=== PATIENT | male | born 1950 | race Two or more races ===

== ENCOUNTER 2023-12-07 19:26 | Inpatient (IN) | payer OTHER ==
[~2023-12-07] VITALS: Ht 182.9 cm; Wt 86.2 kg
[2023-12-07] MEDS ORDERED: EDARBYCLOR 40-1 EACH (20:07)
[2023-12-07] MEDS ORDERED: VICTOZA 2-0.6 MG/0.1 (20:08)
[2023-12-07] MEDS ORDERED: SYNTHROID175 MCG (20:08)
[2023-12-07] MEDS ORDERED: TOUJEO MAX300 UNIT/1 (20:08)
[2023-12-07] MEDS ORDERED: ADCIRCA20 MG (20:08)
[2023-12-07] MEDS ORDERED: MONTELUKAST SODI4 M1 (20:09)
[2023-12-07] MEDS ORDERED: BREO ELLIPTA I1 EACH (20:09)
[2023-12-07] MEDS ORDERED: AMLODIPINE-OLM1 EAC2 (20:09)
[2023-12-07] MEDS ORDERED: CRESTOR5 MG (20:09)
[2023-12-07 21:17] LABS: HEMATOCRIT 41.8 % (39.0-48.0); HEMOGLOBIN 14.4 g/dL (13-16.00); MEAN CELL VOLUME 86.3 fL (80.0-100.00); MEAN CORPUSCULAR HEMOGLOBIN 29.7 pg (27.00-32.0); MEAN CORPUSCULAR HGB CONC 34.4 g/dl (32.0-36.0); PLATELET COUNT 142 K/uL (150-450); RED BLOOD COUNT 4.84 M/uL (4.00-6.00); RED CELL DISTRIBUTION WIDTH 14.3 % (11.5-14.5)
[2023-12-07 21:32] LABS: CALCIUM 8.1 mg/dL (8.5-10.1); CREATININE SERUM 2.52 mg/dL (0.70-1.30); GFR 25.28; POTASSIUM 3.19 mEq/L (3.5-5.1)
[2023-12-07 21:51] LABS: URINE APPEARANCE Cloudy; URINE BILIRRUBIN Small (NEGATIVE); URINE BLOOD Negative; URINE COLOR Dark Yellow; URINE LEUKOCYTE Small; URINE NITRATE Negative
[2023-12-07 21:54] LABS: URINE BACTERIA 171.3 uL (0.0-1933); URINE EPITHELIAL CELLS 61.2 uL (0.0-38.8); URINE RBC 12.7 uL (0.0-20.8); URINE WBC 31.5 uL (0.0-23.2)
[2023-12-07 22:12] LABS: URINE GLUCOSE 100 MG/DL (NEGATIVE); URINE PROTEIN 300 (NEGATIVE)
[2023-12-07 22:13] LABS: URINE CRYSTALS FEW /HPF
[2023-12-08 09:59] LABS: HEMATOCRIT 39.9 % (39.0-48.0); HEMOGLOBIN 13.6 g/dL (13-16.00); MEAN CELL VOLUME 85.8 fL (80.0-100.00); MEAN CORPUSCULAR HEMOGLOBIN 29.3 pg (27.00-32.0); MEAN CORPUSCULAR HGB CONC 34.1 g/dl (32.0-36.0); RED BLOOD COUNT 4.65 M/uL (4.00-6.00); RED CELL DISTRIBUTION WIDTH 14.3 % (11.5-14.5)
[2023-12-08 10:02] LABS: PLATELET COUNT 100 K/uL (150-450)
[2023-12-08 10:06] LABS: ERYTHROCYTE SEDIMENTATION RATE 20 mm/hr
[2023-12-08 10:40] LABS: TSH 0.506 uIU/mL (0.358-3.74)
[2023-12-08 10:56] LABS: ALBUMIN 2.8 gm/dL (3.4-5.0); BILIRUBIN TOTAL 1.89 mg/dL (0.3-1.2); CALCIUM 7.4 mg/dL (8.5-10.1); CHOL HDL RATIO 3.1 (0-5.0); CREATININE SERUM 1.99 mg/dL (0.70-1.30); GFR 33.2; MAGNESIUM 1.7 mg/dL (1.8-2.4); PHOSPHOROUS 3.3 mg/dL (2.5-4.9); TOTAL PROTEIN 5.8 gm/dL (6.4-8.2)
[2023-12-08 11:06] LABS: C-REACTIVE PROTEIN 3.06 MG/DL (0.00-0.29)
[2023-12-08 11:08] LABS: POTASSIUM 2.83 mEq/L (3.5-5.1)
[2023-12-08 11:18] LABS: ob POSITIVE (NEGATIVE)
[2023-12-09 07:32] LABS: CALCIUM 8.1 mg/dL (8.5-10.1); CREATININE SERUM 1.72 mg/dL (0.70-1.30); GFR 39.28; MAGNESIUM 1.9 mg/dL (1.8-2.4); PHOSPHOROUS 3.1 mg/dL (2.5-4.9); POTASSIUM 3.73 mEq/L (3.5-5.1)
[2023-12-10 06:31] LABS: HEMATOCRIT 38.5 % (39.0-48.0); HEMOGLOBIN 13.4 g/dL (13-16.00); MEAN CELL VOLUME 86.1 fL (80.0-100.00); MEAN CORPUSCULAR HGB CONC 34.8 g/dl (32.0-36.0); RED BLOOD COUNT 4.47 M/uL (4.00-6.00); RED CELL DISTRIBUTION WIDTH 14.1 % (11.5-14.5)
[2023-12-10 06:37] LABS: PLATELET COUNT 130 K/uL (150-450)
[2023-12-10 07:13] LABS: ALBUMIN 2.7 gm/dL (3.4-5.0); BILIRUBIN TOTAL 1.08 mg/dL (0.3-1.2); CALCIUM 7.9 mg/dL (8.5-10.1); CREATININE SERUM 1.47 mg/dL (0.70-1.30); GFR 47.09; GLOBULINA 3.1 G/DL (2.4-3.5); MAGNESIUM 2.2 mg/dL (1.8-2.4); PHOSPHOROUS 2.6 mg/dL (2.5-4.9); TOTAL PROTEIN 5.8 gm/dL (6.4-8.2)
[2023-12-10 08:24] LABS: POTASSIUM 2.89 mEq/L (3.5-5.1)
[2023-12-10] MEDS ORDERED: MICRO-K 1010 MEQ PO (16:43)
[2023-12-10] MEDS ORDERED: INTESTINEX680 M1 PO (16:44)
[2023-12-13 08:09] LABS: campy Final report (.)
== END 2023-12-10 18:00 | disposition home or self-care (01) | DRG 392 ==
LOC: ER 19:28 → ICU-2 12-08 00:39 → MEDJ 12-08 16:54 → MEDI 12-08 18:44
PROVIDERS: Emergency Medicine; Internal Medicine Infectious Disease; Internal Medicine Nephrology; ADMIT Internal Medicine; ATTEND Internal Medicine
PROC: BT43ZZZ Ultrasonography of Bilateral Kidneys (ICD-10-PCS; principal; 2023-12-08)
DX: K52.9 Noninfective gastroenteritis and colitis, unspecified (principal); N17.9 Acute kidney failure, unspecified; I12.9 Hypertensive chronic kidney disease with stage 1 through stage 4 chronic kidney disease, or unspecified chronic kidney disease; E11.22 Type 2 diabetes mellitus with diabetic chronic kidney disease; N18.9 Chronic kidney disease, unspecified; Z79.4 Long term (current) use of insulin; E87.6 Hypokalemia; I95.9 Hypotension, unspecified